=== PATIENT | female | born 1955 | race Caucasian/White ===

== ENCOUNTER 2021-06-17 08:31 | Emergency (ER) | payer BC, SELFPAY ==
[2021-06-17 08:47] VITALS: BP 144/82; PULSE 88; RESP 16; TEMP 36.8; O2SAT 98
--- NOTE | 2021-06-17 09:05 | ED.URI ---
HPI - URI/Sore Throat General Chief Complaint: Upper Respiratory Infection Stated Complaint: bills/sinus infection Time Seen by Provider: 06/17/21 09:05 Source: patient and RN notes reviewed Mode of arrival: ambulatory Limitations: no limitations History of Present Illness HPI Narrative: 66-year-old female presented for complaint of headache, sinus pressure/congestion, cough, fever/chills for about 1 week. Endorses her son who lives with her was positive for Covid about 3 weeks ago. She has been vaccinated but not boosted. She denies associated chest pain, palpitations, increased shortness of breath, dizziness. Not taking anything for symptoms. Smokes 1PPD. MD elicited complaint: cough Related Data Home Medications Medication Instructions Recorded Confirmed amlodipine 2.5 mg PO DAILY 06/17/21 06/17/21 cyclobenzaprine 10 mg PO DAILY 06/17/21 06/17/21 fentanyl 1 patch TRANSDERMAL 2XW 06/17/21 06/17/21 fexofenadine-pseudoephedrine 1 tablet PO DAILY 06/17/21 06/17/21 [Luzma-D 12 Hour] fluticasone propionate 2 spray INTRANASAL DAILY 06/17/21 06/17/21 furosemide 40 mg PO DAILY 06/17/21 06/17/21 levothyroxine [Euthyrox] 75 mcg PO DAILY 06/17/21 06/17/21 naloxone [Narcan] 4 mg INTRANASAL ONCE PRN 06/17/21 06/17/21 oxycodone-acetaminophen 1 tablet PO DAILY 06/17/21 06/17/21 pramipexole 0.125 mg PO DAILY 06/17/21 06/17/21 pregabalin 25 mg PO DAILY 06/17/21 06/17/21 Allergies Allergy/AdvReac Type Severity Reaction Status Date / Time No Known Allergies Allergy Verified 06/17/21 09:12 Review of Systems Review of Systems: CONSTITUTIONAL:endorses chills, sweats, fever EYES: Denies visual changes, redness, or discharge ENT: Reports rhinorrhea, congestion, sinus pain, otalgia, sore throat CARDIOVASCULAR: Denies chest pain, palpitations, edema RESPIRATORY: Reports cough, post nasal drainage. Denies dyspnea GASTROINTESTINAL: Denies abdominal pain Endorses nausea, vomiting decreased appetite taste/smell SKIN: Denies rash or itching MUSCULOSKELETAL: Denies myalgia NEUROLOGIC: Denies headache Exam Narrative: GENERAL: Ill-appearing, older than stated age no acute distress. HEAD: Normocephalic EYES: PERRLA, conjunctivae clear ENT: Mucous membranes moist. TM pearly mckenzie with dull light reflex bilaterally; no tragal tenderness. Oropharynx erythematous without lesions or exudate, no drooling, no hoarseness, no trismus, uvula midline. NECK: Supple. No lymphadenopathy CHEST: Bialteral bases coarse expiration, No respiratory distress, speaks in full sentences. HEART: Regular rate and rhythm. No murmur heard. SKIN: Warm, dry, no rash. NEURO: Alert and oriented x3. PSYCH: Normal mood and affect Course Course Emergency Course: covid neg Patient is aware of diagnosis, understands and agrees to treatment plan. Anticipatory guidance given. Patient agrees to follow-up as directed and is aware of reasons to seek care at the emergency department. Portions of this record may have been created with voice recognition software Level of Care: Express Care Visit Vital Signs Vital signs: Vital Signs Temperature 98.2 F 06/17/21 08:47 Pulse Rate 88 06/17/21 08:47 Respiratory Rate 16 06/17/21 08:47 Blood Pressure 144/82 H 06/17/21 08:47 Pulse Oximetry 98 06/17/21 08:47 Temperature 98.2 F 06/17/21 08:47 Pulse Rate 88 06/17/21 08:47 Respiratory Rate 16 06/17/21 08:47 Blood Pressure 144/82 H 06/17/21 08:47 Pulse Oximetry 98 06/17/21 08:47 reviewed MDM - URI/Sore Throat Differential Diagnosis Differential diagnosis: Likely upper respiratory infection, otitis media, sinusitis and viral infection Discharge Plan Discharge Clinical Impression: Upper respiratory infection Qualifiers: URI type: unspecified URI Qualified Code(s): J06.9 - Acute upper respiratory infection, unspecified Patient Disposition: Home, Self-Care Condition: Stable Instructions: Antibiotic Form, COVID-19 (Coronavirus Disease 2019)
== END 2021-06-17 09:30 | disposition home or self-care (01) ==
PROVIDERS: Emergency Provider Nurse Practitioner Family; PCP Family Medicine
DX: J06.9 Acute upper respiratory infection, unspecified (principal); Z20.822 Contact with and (suspected) exposure to COVID-19
CPT/HCPCS: 87426; 99213; C9803; G0463

== ENCOUNTER 2021-10-08 08:19 | Emergency (ER) | payer BC, SELFPAY ==
--- NOTE | 2021-10-08 08:27 | ED.URI ---
HPI - URI/Sore Throat General Chief Complaint: Upper Respiratory Infection Stated Complaint: Sinus Time Seen by Provider: 10/08/21 08:27 Source: patient, family, RN notes reviewed and old records reviewed Mode of arrival: ambulatory Limitations: no limitations History of Present Illness HPI Narrative: 66-year-old female presents to the [facility] with complaints of a sinus infection. Patient states that she needs 14 days of Augmentin. Has had sinus congestion, nausea, diarrhea and a fever of 102. No treatment prior to arrival. Patient states that symptoms have been going on for some days. Is currently a smoker. Denies any new cough MD elicited complaint: rhinorrhea, nasal congestion and sinus pain Related Data Home Medications Medication Instructions Recorded Confirmed amlodipine 2.5 mg tablet 2.5 mg PO DAILY 06/17/21 10/08/21 cyclobenzaprine 10 mg tablet 10 mg PO DAILY 06/17/21 10/08/21 fentanyl 25 mcg/hr transdermal 1 patch transdermal 2XW 06/17/21 10/08/21 patch fexofenadine 60 mg-pseudoephedrine 1 tablet PO DAILY 06/17/21 10/08/21 ER 120 mg tablet,ext.release,12 hr (Luzma-D 12 Hour) furosemide 40 mg tablet 40 mg PO DAILY 06/17/21 10/08/21 levothyroxine 75 mcg tablet 75 mcg PO DAILY 06/17/21 10/08/21 (Euthyrox) naloxone 4 mg/actuation nasal 4 mg intranasal ONCE PRN overdose 06/17/21 10/08/21 spray (Narcan) oxycodone-acetaminophen 10 mg-325 1 tablet PO DAILY 06/17/21 10/08/21 mg tablet pramipexole 0.125 mg tablet 0.125 mg PO DAILY 06/17/21 10/08/21 pregabalin 25 mg capsule 25 mg PO DAILY 06/17/21 10/08/21 Allergies Allergy/AdvReac Type Severity Reaction Status Date / Time No Known Allergies Allergy Verified 10/08/21 08:29 Review of Systems Review of Systems: All systems reviewed & are unremarkable except as noted in HPI and below Constitutional: Constitutional: Reports as per HPI, Denies chills, Reports fever(s) (102) and Denies headache(s) Eyes: Eyes: Reports no additional eye complaints ENT: Reports as per HPI, Denies vertigo, Denies dizziness, Denies headache(s), Reports nasal congestion and Denies sore throat Cardiovascular: Cardiovascular: Reports no additional cardiovascular complaints, Denies chest pain, Denies syncope, Denies rapid heart rate and Denies dyspnea Respiratory: Respiratory: Reports no additional respiratory complaints, Denies cough, Denies dyspnea and Denies wheezing Gastrointestinal: Gastrointestinal: Reports as per HPI, Denies abdominal pain, Reports diarrhea, Reports nausea and Denies vomiting Musculoskeletal: Musculoskeletal: Reports no additional musculoskeletal complaints and Denies numbness Integumentary/Breasts: Skin/Breast: Reports system reviewed and no additional complaints, except as docu Neurologic: Reports system reviewed and no additional complaints, except as documented, Denies vertigo, Denies dizziness, Denies syncope, Denies headache(s), Denies focal weakness and Denies numbness Psychiatric: Psychiatric: Reports no additional psychiatric complaints Allergic/Immunologic: Allergic/Immunologic: Reports no additional allergic/immunologic complaints and Denies wheezing PMFSH Past Medical History Medical History Back pain Chronic pain Hypertension Thyroid disease Social History Social History Smoking packs per day: 1 Smoking cigarettes per day: 20.0 Smoking status: Current every day smoker Tobacco type: cigarettes Living arrangements: with family Gender identity (if verbalized by the patient): Female Comments At the time of my signature, I reviewed and agree with the nursing past medical, surgical, social, and family history. There is no relevant family history pertinent to the patient complaint. Exam Const: General: cooperative, no acute distress, well developed, alert and ill appearing chronically Nutritional Appearance:
[2021-10-08 08:30] VITALS: BP 111/79; PULSE 91; RESP 16; TEMP 36.7; O2SAT 98
[2021-10-08 08:31] VITALS: BP 111/79; PULSE 91; RESP 16; TEMP 36.7; O2SAT 98
== END 2021-10-08 08:55 | disposition home or self-care (01) ==
PROVIDERS: Emergency Provider Nurse Practitioner; PCP Family Medicine
DX: J10.1 Influenza due to other identified influenza virus with other respiratory manifestations (principal); Z20.822 Contact with and (suspected) exposure to COVID-19; I10 Essential (primary) hypertension; E07.9 Disorder of thyroid, unspecified; F17.210 Nicotine dependence, cigarettes, uncomplicated
CPT/HCPCS: 87426; 87804; 99213; C9803; G0463